=== PATIENT | female | born 1950 | race Caucasian/White ===

== ENCOUNTER 2017-04-16 10:08 | Emergency (ER) | payer MEDICARE, OTHER ==
[~2017-04-16] VITALS: Ht 154.9 cm; Wt 80.2 kg
[~2017-04-16 10:08] MED LIST: LORA-269 PO
[2017-04-16 10:16] VITALS: BP 146/101
[2017-04-16] MEDS ORDERED: ESCI10TA PO (10:41)
== END 2017-04-16 10:51 | disposition home or self-care (01) ==
LOC: ER 10:09
DX: F41.9 Anxiety disorder, unspecified (principal); F32.9 Major depressive disorder, single episode, unspecified; E78.00 Pure hypercholesterolemia, unspecified; Z76.0 Encounter for issue of repeat prescription
CPT/HCPCS: 99284